=== PATIENT | male | born 1990 | race Caucasian/White ===

== ENCOUNTER 2021-12-17 12:40 | Emergency (ER) | payer MEDICAID, SELFPAY ==
--- NOTE | ~2021-12-17 | US_ITS ---
EXAMINATION: US SCROTUM CLINICAL INFORMATION: Testicular pain. COMPARISON: None TECHNIQUE: A sonogram of the scrotum was performed assessing brink-scale appearance and color Doppler flow. Spectral Doppler analysis of the arterial and venous flow were performed in the testes bilaterally. FINDINGS: The right testicle is 5.1 x 2.4 x 3.3 cm. Volume 20 mL. The left testicle is 4.7 x 2.5 x 2.5 cm. Volume 50 mL. The testicles are normal in echogenicity. Normal vascularity arterial and venous is documented. Small hydroceles are seen bilaterally. The epididymal structures are within normal limits. US/US scrotum IMPRESSION: Small hydroceles are seen here bilaterally. The testicles are within normal limits.
--- NOTE | ~2021-12-17 | US_ITS ---
EXAMINATION: US SCROTUM CLINICAL INFORMATION: Testicular pain. COMPARISON: None TECHNIQUE: A sonogram of the scrotum was performed assessing brink-scale appearance and color Doppler flow. Spectral Doppler analysis of the arterial and venous flow were performed in the testes bilaterally. FINDINGS: The right testicle is 5.1 x 2.4 x 3.3 cm. Volume 20 mL. The left testicle is 4.7 x 2.5 x 2.5 cm. Volume 50 mL. The testicles are normal in echogenicity. Normal vascularity arterial and venous is documented. Small hydroceles are seen bilaterally. The epididymal structures are within normal limits. US/US scrotum doppler IMPRESSION: Small hydroceles are seen here bilaterally. The testicles are within normal limits.
[2021-12-17 13:47] VITALS: BP 134/96; PULSE 82; RESP 16; TEMP 37.6; O2SAT 99; BMI 19.3
[2021-12-17 14:30] LABS: MANUAL DIFF FLAG NO
[2021-12-17 14:31] LABS: Basophils Absolute Auto 0.1 X10*3/uL (0.0-0.2); Basophils Percent Auto 0.5 % (0-2); Eosinophils Absolute Auto 0.1 X10*3/uL (0.0-0.4); Eosinophils Percent Auto 0.9 % (0-4); Hematocrit 42.7 % (42.0-52.0); Hemoglobin 14.7 g/dl (14.0-18.0); Imm Gran Abs Auto 0.04 X10*3/uL (0.00-0.03); Imm Gran Pct Auto 0.4 % (0.0-0.4); Lymphocytes Percent Auto 22.2 % (20-40); Mean Corpuscular HGB Conc 34.4 g/dl (31.0-36.0); Mean Corpuscular Hemoglobin 30.9 pg (27.0-33.0); Mean Corpuscular Volume 89.7 fL (80.0-98.0); Mean Platelet Volume 8.7 fL (9.4-12.4); Monocytes Absolute Auto 0.7 X10*3/uL (0.1-1.2); Monocytes Percent Auto 7.8 % (2-11); Neutrophils Absolute Auto 6.2 x10*3/uL (2.0-8.3); Neutrophils Percent Auto 68.2 % (45-73); Platelet Count 332 X10*3/uL (160-400); Red Blood Count 4.76 X10*6/uL (4.60-5.80); Red Cell Distribution Width 11.9 % (11.0-16.0); White Blood Count 9.1 X10*3/uL (4.8-10.8)
[2021-12-17 14:45] LABS: Anion Gap 16 (12-20); Blood Urea Nitrogen 12 mg/dL (9-16); Calcium 9.7 mg/dL (8.4-10.2); Carbon Dioxide 26 mmol/L (22-29); Chloride 102 mmol/L (96-108); Creatinine Clr Calc Pharmacy 85.8; Estimated Glomerular Filt Rate > 60; Glucose Random 98 mg/dL (60-115); Potassium 4.5 mmol/L (3.3-5.1); Sodium 139 mmol/L (135-145)
[2021-12-17 19:09] LABS: Appearance Urine Clear; Color Urine Yellow; Glucose Urine UA Negative (Negative); Leukocyte Esterase Urine Negative (Negative); Nitrite Urine Negative (Negative); PH 7.5 (5.0-9.0); Specific Gravity - Urine <= 1.005 (1.005-1.025); UMIC TRIGGER UACC YES; Urine Blood Trace (Negative); Urine Ketones Negative (Negative); Urine Protein Negative (Neg-Trace)
[2021-12-17 19:14] LABS: Bacteria Urine None Seen (None Seen); Hyaline Casts Urine 0-2 /LPF (0-2); RBC Urine 0-2 /HPF (0-2); Squamous Epithelial Cell Urine 0-2 /HPF (0-2); WBC Urine 0-5 /HPF (0-5)
--- NOTE | 2021-12-17 19:19 | ED_ITS ---
HPI - Male Genitourinary General Chief complaint: Urogenital-Male Stated complaint: abd and testicle pain Time Seen by Provider: 12/17/21 18:28 Source: patient Mode of arrival: ambulatory Limitations: no limitations History of Present Illness HPI Narrative: Patient presents emergency department for evaluation of genital pain. He reports over the past 2 days he has been having some discomfort to his testicles, feels that they are slightly swollen. Pain is mostly felt of her when in a sitting position. He is also reporting urinary frequency and some discomfort with urination. Denies fevers, chills, nausea, vomiting, abdominal pain, penile discharge. He states that he has had some recent unprotected int ercourse. States that approximately 3 or 4 weeks ago he was treated prophylactically with doxycycline for 1 week to cover chlamydia after her at tested positive. He also is reporting that there is a lesion time right next to his urethra that is described as uncomfortable after urination. It is Related Data Previous Rx's Medication Instructions Recorded doxycycline hyclate 100 mg capsule 100 mg PO BID 7 days #14 caps 12/17/21 Allergies Allergy/AdvReac Type Severity Reaction Status Date / Time shellfish derived Allergy Unknown THROAT Unverified 11/30/19 16:08 [SHELLFISH DERIVED] CLOSES Review of Systems Review of Systems: Constitutional: No weight loss, fever, chills, weakness or fatigue. Skin: No rash or itching. Cardiovascular: No chest pain, chest pressure or chest discomfort. No palpitations or pedal edema. Respiratory: No shortness of breath, cough or sputum production. Gastrointestinal: No anorexia, nausea, vomiting or diarrhea. No abdominal pain Genitourinary: positive burning micturition. positive urinary frequency positive testicular swelling. Musculoskeletal: No muscle pain, back pain, joint pain or stiffness. Psychiatric: No depression or anxiety. Yes all other systems are reviewed and are negative PMF Past Medical History Attestation statement: The following information was validated with the patient. Source: old records reviewed Social History Social History Advance Directives: No Advance Directives Information Provided: No Physical Exam Vital Signs: Vital Signs: Last Vital Signs Temp 99.7 F 12/17/21 13:47 Pulse 82 12/17/21 13:47 Resp 16 12/17/21 13:47 BP 134/96 H 12/17/21 13:47 Pulse Ox 99 12/17/21 13:47 O2 Del Method 12/17/21 13:47 BMI result Body Mass Index 19.3 Appearance: Alert.?Oriented to person, place and time. No acute distress.?Normal affect. Eyes: Pupils equal, round and reactive to light.? ENT: Pharynx normal.?? Neck: Normal inspection.? Neck supple.?? CVS: Heart sounds normal. Normal heart rate and rhythm.? Pulses normal.?? Respiratory: No respiratory distress.? Lung sounds clear to auscultation bilaterally?? Abdomen: Soft and non-tender. Normoactive bowel sounds. ? genitourinary: performed with case mgr, ED [facility] [place]. bilateral testicles without erythema, swelling, warmth. There is a 0.5 cm linear lesion just lateral to the urethra, erythematous, mildly tender. Skin: Skin warm and dry.? Normal skin color.? Extremities: No lower extremity edema.? Neuro: Moves all extremities spontaneously. Sensation intact bilaterally. No focal neuro deficits. Ambulates with normal steady gait. Course Course Course Narrative: Patient is a 31-year-old male with no significant past medical history presenting to the emergency department for genitourinary complaints. There was concern for possible sexually transmitted infection. Given report of testicular pain and swelling, will obtain ultrasound to exclude torsion, evaluate for hydro radhames, epididymitis. Obtain basic labs, CT NG. There is a single lesion just lateral to the urethra, erythematous, non bleeding, mildly tender to touch by his report. Obtained HSV culture. Reevaluation(s) Reevaluation #1: labs are overall unremarkable. scrotal ultrasound reveals small bilateral hydroceles otherwise unremarkable. Urinalysis without evidence of urinary tract infection. Given patient was recently treated for chlamydia with full course of doxycycline. he does states that he has had unprotected intercourse after completing treatment. Furthermore at this time he reports that he was treated couple of months ago for gonorrhea with a pill, is not certain which antibiotic he had taken. Discussed plan with patient, offered prophylactic treatment for gonorrhea and chlamydia at this time with ceftriaxone IM and doxycycline orally for 1 week, patient is agreeable to both. Discussed treatment for HSV with valacyclovir, however patient declines at this time and would like to await culture testing results. Reviewed worrisome signs and symptoms to return back to emergency department for. Advised to follow-up with primary care provider as needed. Patient discharged home stable condition. Time: 20:06 MDM - Male Genitourinary Medical Records Attestation: I reviewed the patient's medical records. Lab Data Attestation: I reviewed the patient's lab results. Result diagrams: 12/17/21 14:26 12/17/21 14:26 Labs: Lab Results 12/17/21 12/17/21 12/17/21 Range/Units 14: 14: 18:57 WBC 9.1 (4.8-10.8) X10*3/uL RBC 4.76 (4.60-5.80) X10*6/uL Hgb 14.7 (14.0-18.0) g/dl Hct 42.7 (42.0-52.0) % MCV 89.7 (80.0-98.0) fL MCH 30.9 (27.0-33.0) pg MCHC 34.4 (31.0-36.0) g/dl RDW 11.9 (11.0-16.0) % Plt Count 332 (160-400) X10*3/uL MPV 8.7 L (9.4-12.4) fL Immature Gran % (Auto) 0.4 (0.0-0.4) % Neut % (Auto) 68.2 (45-73) % Lymph % (Auto) 22.2 (20-40) % Esmeralda % (Auto) 7.8 (2-11) % Eos % (Auto) 0.9 (0-4) % Baso % (Auto) 0.5 (0-2) % Lymph # (Auto) 2.0 (1.2-4.9) X10*3/uL Esmeralda # (Auto) 0.7 (0.1-1.2) X10*3/uL Eos # (Auto) 0.1 (0.0-0.4) X10*3/uL Baso # (Auto) 0.1 (0.0-0.2) X10*3/uL Abs Immat Gran (auto) 0.04 H (0.00-0.03) X10*3/uL Absolute Neuts (auto) 6.2 (2.0-8.3) x10*3/uL Absolute Nucleated RBC 0.000 (0.0-0.012) X10*3/uL Nucleated RBC % (auto) 0.0 (0.0-0.2) /100WBC Sodium 139 (135-145) mmol/L Potassium 4.5 (3.3-5.1) mmol/L Chloride 102 (96-108) mmol/L Carbon Dioxide 26 (22-29) mmol/L Anion Gap 16 (12-20) BUN 12 (9-16) mg/dL Creatinine 1.10 (0.5-1.4) mg/dL Estim Creat Clear Calc 85.8 Estimated GFR > 60 Random Glucose 98 (60-115) mg/dL Calcium 9.7 (8.4-10.2) mg/dL Urine Color Yellow Urine Appearance Clear Urine pH 7.5 (5.0-9.0) Ur Specific [place] <= 1.005 (1.005-1.025) Urine Protein Negative (Neg-Trace) mg/dL Urine Glucose (UA) Negative (Negative) mg/dL Urine Ketones Negative (Negative) mg/dL Urine Blood Trace H (Negative) Urine Nitrite Negative (Negative) Ur Leukocyte Esterase Negative (Negative) Urine RBC 0-2 (0-2) /HPF Urine WBC 0-5 (0-5) /HPF Ur Squamous Epith Cells 0-2 (0-2) /HPF Urine Bacteria None Seen (None Seen) Hyaline Casts 0-2 (0-2) /LPF Imaging Data testicular US: Radiologist's impression: US/US scrotum IMPRESSION: Small hydroceles are seen here bilaterally. The testicles are within normal limits. Discharge Plan Discharge Clinical Impression: Hydrocele, bilateral, Dysuria Patient Disposition: Home, Self-Care Instructions: Hydrocele (ED), Testicle Pain (ED) Additional Instructions: As we discussed, your ultrasound reveals that you have a hydrocele to both testicles. This is a collection of fluid inside of the scrotum. You can take ibuprofen 200 mg, 3 tablets (600mg) every 6-8 hours as needed for pain, in addition to Tylenol 500 mg, 2 tablets (1,000mg) every 4-6 hours as needed for pain, but not to exceed 3 doses daily (3,000mg).? Consider wearing supportive undergarments to decrease the swelling. if this continues to get larger becomes more painful you may need to be evaluated by the urologist. You were treated preventatively for gonorrhea and chlamydia infection with ceftriaxone injection and will require a 1 week course of doxycycline. Return to the emergency department any new or worsening symptoms or concerns. Prescriptions: New doxycycline hyclate 100 mg capsule 100 mg PO BID 7 Days Qty: 14 0RF Interventions: ED Discharge Assessment Last Done: 12/17/21 20:33 Discharge Date/Time: 12/17/21 20:34
[2021-12-17] MEDS: cefTRIAXone sodium 500 MG VIAL IM (20:32)
[2021-12-18 02:28] LABS: CT PCR NOT DETECTED (Not Detect.); NG PCR NOT DETECTED (Not Detect.)
== END 2021-12-17 20:34 | disposition home or self-care (01) ==
PROVIDERS: Nurse Practitioner Family; Emergency Provider Emergency Medicine
DX: N43.3 Hydrocele, unspecified (principal); N50.811 Right testicular pain; N50.812 Left testicular pain; Z79.899 Other long term (current) drug therapy
CPT/HCPCS: 36415; 76870; 80048; 81001; 85025; 87255; 87491; 87591; 93975; 96372; 99282; 99284; J0696